=== PATIENT | male | born 1995 | race Caucasian/White ===

== ENCOUNTER 2017-06-20 11:22 | Emergency (ER) | payer OTHER ==
[~2017-06-20] VITALS: Wt 69.0 kg
[2017-06-20] MEDS ORDERED: LORAZEPAM 0.5 MG TAB PO ONE (12:00)
[2017-06-20] MEDS ORDERED: IBUPROFEN 800 MG TAB PO ONE (12:00)
--- NOTE | 2017-06-20 13:28 | RADRPT ---
PROCEDURE: Scrotal ultrasound CLINICAL INDICATION: Scrotal swelling TECHNIQUE: Scrotal ultrasound was performed in multiple obliquities. Almanza scale and color imaging was performed. Images were reviewed on high resolution PACS monitors. COMPARISON: None available FINDINGS: Study is mildly limited as the patient was uncooperative with exam. The testes are normal in size a nd echogenicity. There is normal flow to the bilateral testes. No testicular mass or cyst is ident ified. No hydroceles are seen. The epididymides are normal. There is no evidence for a varicoc nick. IMPRESSION: 1. Unremarkable scrotal ultrasound. RPTAT: KK .Roger Workman MD, MD Date Time Electronically viewed and signed by .Roger Workman MD, MD on 06/20/2017 13:28 .B/
--- NOTE | 2017-06-20 13:37 | ERD ---
ER Documentation Chief Complaint Date/Time DATE: 06/20/17 TIME: 13:36 Chief Complaint GROIN PAIN SINCE THIS MORNING HPI This is a 21-year-old male who presents to the emergency department today with his friend complaining of some pain and swelling in his testicles that occurred when he was standing in the shower. States he has a history of anxiety but does not take any medications. Denies any fevers or chills, dysuria, abdominal pain ROS All systems reviewed and are negative except as per history of present illness. Medications Home Meds Active Scripts Clotrimazole* (Clotrimazole* AF) 1% - 30 Gm Cream.gm., 1 APPLIC TOP BID for 7 Days, #1 TUB Prov:RICA ROMERO PA-C 06/20/17 Naproxen* (Naprosyn*) 500 Mg Tablet, 500 MG PO BID Y for PAIN AND/OR INFLAMMATION, #30 TAB Prov:RICA ROMERO PA-C 06/20/17 Allergies Allergies: Coded Allergies: No Known Allergy (Unverified , 06/20/17) Physical Exam Vitals Vital Signs Date Time Temp Pulse Resp B/P Pulse Ox O2 Delivery O2 Flow Rate FiO2 06/20/17 11:28 98.0 102 18 135/82 99 Physical Exam Const: Anxious, uncooperative Head: Atraumatic Eyes: Normal Conjunctiva ENT: Normal External Ears, Nose and Mouth. Neck: Full range of motion..~ No meningismus. Resp: Clear to auscultation bilaterally Cardio: Regular rate and rhythm, no murmurs Abd: Soft, non tender, non distended. Normal bowel sounds : Uncircumcised penis with evidence of fungal discharge around foreskin. Uncooperative with palpation of the testicles. Testicles appear descended bilaterally. Skin: No petechiae or rashes Back: No midline or flank tenderness Ext: No cyanosis, or edema Neur: Awake and alert Psych: Normal Mood and Affect Results 24 hrs Laboratory Tests Test 06/20/17 14:00 Bedside Urine pH (LAB) 5.5 Bedside Urine Protein (LAB) 1+ Bedside Urine Glucose (UA) Negative Bedside Urine Ketones (LAB) Negative Bedside Urine Blood Negative Bedside Urine Nitrite (LAB) Negative Bedside Urine Leukocyte Esterase (L Negative Current Medications Medications (Trade) Dose Ordered Sig/Kelly Route PRN Reason Start Time Stop Time Status Last Admin Dose Admin Ibuprofen (Motrin) 800 mg ONCE ONCE PO 06/20/17 12:00 06/20/17 12:01 DC 06/20/17 11:59 Lorazepam (Ativan) 0.5 mg ONCE ONCE PO 06/20/17 12:00 06/20/17 12:01 DC 06/20/17 12:00 DIAGNOSTIC IMAGING REPORT Patient: ANGE MOROCHO : 1995 Age: 21 Sex: M MR #: [id number] DOS: 06/20/17 0000 Ordering MD: RICA ROMERO PA-C Location: [facility] Room/Bed: PROCEDURE: Scrotal ultrasound CLINICAL INDICATION: Scrotal swelling TECHNIQUE: Scrotal ultrasound was performed in multiple obliquities. Almanza scale and color imaging was performed. Images were reviewed on high resolution PACS monitors. COMPARISON: None available FINDINGS: Study is mildly limited as the patient was uncooperative with exam. The testes are normal in size and echogenicity. There is normal flow to the bilateral testes. No testicular mass or cyst is identified. No hydroceles are seen. The epididymides are normal. There is no evidence for a varicocele. IMPRESSION: 1. Unremarkable scrotal ultrasound. RPTAT: KK .Roger Workman MD, MD Date Time Electronically viewed and signed by .Roger Workman MD, MD on 2016 13:28 .B/ CC: RICA ROMERO PA-C Procedures/[facility] This is a 21-year-old male who presents to the emergency department today complaining of testicular pain and swelling. Patient has a history of anxiety and was very uncooperative during physical exam and it appears so as well during the ultrasound. Patient is here with his friend who told me that "the patient is a deeply presybeterian person and is also a very talented impath". Patient was given 0.5 mg of Ativan and Motrin here in the emergency department prior to ultrasound Ultrasound is unremarkable. The study was mildly limited as patient was uncooperative with exam. The testes are normal in size and echogenicity. There is normal flow to the bilateral testes. There is no testicular mass or cyst identified. No hydroceles are seen. Epididymides are normal. There is no evidence for event varicocele Patient initially refused a urine sample but then agreed to it UA is negative for infection On physical exam patient did have a small amount of fungus along penis shaft when he retracted his foreskin most consistent with balanitis and fungal infection. There is no drainage from his penis and I do not feel that he requires Bactrim at this time patient will be given a prescription for Chlortrimazole cream. He will also be given a prescription for Naprosyn. Patient's friend was requesting medication for anxiety. I did explain to the friend that this is a controlled substance the patient indicated that his mother did not want him to take anything for it. Patient does have a psychologist. Patient was instructed to follow-up with a psychologist to help address his anxiety. I did not discharge the patient home on any antianxiety medications per At this time the patient is stable for discharge and outpatient management. Patient should follow up with their PCP in the next 1-2 days. They may return to the emergency department sooner for any persistent or worsening of symptoms. Patient and friend understood and agreed with the plan. Departure Diagnosis: Primary Impression: Testicle pain Additional Impression: Balanitis Condition: RICA Kim PA-C Jun 20, 2017 13:37
[2017-06-20 13:55] LABS: URINE BLOOD (Dip) POC Negative (NEGATIVE)
[2017-06-20] MEDS ORDERED: NAPR-260 PO (14:04)
[2017-06-20] MEDS ORDERED: CLOT30CR24 TOP (14:04)
[2017-06-20 14:28] VITALS: BP 124/80; PULSE 78; RESP 16; TEMP 98.1
[2017-06-21 16:09] LABS: URINE BLOOD (Dip) POC Negative (NEGATIVE)
== END 2017-06-20 14:29 | disposition home or self-care (01) ==
LOC: FTE 11:22
DX: N50.811 Right testicular pain (principal); N48.1 Balanitis; N50.812 Left testicular pain
CPT/HCPCS: 76870; 81003; Z7502; Z7610